=== PATIENT | male | born 1970 | race Caucasian/White ===

== ENCOUNTER 2016-07-18 15:36 | Emergency (ER) ==
[2016-07-18 15:41] VITALS: BP 156/104; TEMP 99.8; BMI 43.0
[2016-07-18] MEDS ORDERED: NORCO 10-325 PO STA (15:51)
--- NOTE | 2016-07-18 16:20 | DI ---
EXAM: Three views of the right ankle. History: Right ankle pain. Comparison: Right ankle radiograph 01/07/2013 Findings: No acute fracture or dislocation. Moderate narrowing of the tibiotalar joint. Calcaneal enthesiopathy. Soft tissue swelling at the ankle. Hypertrophic osseous changes of the medial late ral malleolus compatible with old ligamentous injury. Impression: 1. No acute fracture or dislocation. 2. Moderate arthritis of the tibiotalar joint. 3. Hypertrophic osseous changes of the medial and lateral malleolus compatible with old trauma. 4. Subcutaneous edema.
--- NOTE | 2016-07-18 16:21 | DI ---
EXAM: Three views of the right foot. History: Right foot pain. Comparison: Right ankle radiograph 07/18/2016 Findings: No acute fracture or dislocation. Subcutaneous edema at the ankle. Mild narrowing of th e first MTP joint. Hypertrophic osseous changes of the medial lateral malleolus compatible with old trauma. Impression: No acute osseous abnormality. Subcutaneous edema.
--- NOTE | 2016-07-18 16:45 | ED.PDOC ---
General ED Provider: Dr. JOSE MARIA MCKEON Chief Complaint: Ankle Pain/Injury Stated Complaint: ankle, foot right side Time Seen by Physician: 15:45 Mode of Arrival: Walk-In Information Source: Patient Exam Limitations: No limitations Primary Care Provider: YUO CHAMBERLAIN Nursing and Triage Documentation Reviewed and Agree: Yes Musculoskeletal Complaint Exam - Ankle/Foot Complaint/Exam Location of Injury: Reports: Right, Ankle, Foot Mechanism of Injury: Reports: Trauma ( twisted it) Onset/Duration: 2 hours ago Symptoms Are: Reports: Still present Onset of Pain: Reports: Hours Initial Severity: Moderate Current Severity: Mild Location: Reports: Discrete Character: Reports: Dull Alleviating: Reports: Rest, Position Aggravating: Reports: Movement Able to Bear Weight: Yes Associated Signs and Symptoms: Denies: Swelling, Redness, Bruising, Fever, Weakness, Numbness, Tingling Gout Risk Factors: Reports: >40 years old Related Surgical History: Reports: None Differential Diagnosis: Closed Fracture Review of Systems - Review Of Systems Constitutional: Reports: No symptoms Eyes: Reports: No symptoms Ears, Nose, Mouth, Throat: Reports: No symptoms Respiratory: Reports: No symptoms Cardiac: Reports: No symptoms GI: Reports: No symptoms : Reports: No symptoms Musculoskeletal: Reports: Joint pain (ankle, foot) Skin: Reports: No symptoms Neurological: Reports: No symptoms Endocrine: Reports: No symptoms Hematologic/Lymphatic: Reports: No symptoms All Other Systems: Reviewed and Negative Past Medical History - Past Medical History Previously Healthy: Yes Endocrine: Reports: Dyslipidemia Cardiovascular: Reports: Hypertension Respiratory: Reports: COPD Hematological: Reports: None Gastrointestinal: Reports: GERD Genitourinary: Reports: None Neuro/Psych: Reports: Anxiety, Depression Musculoskeletal: Reports: Arthritis, Back Pain, Joint Pain Cancer: Reports: None Other Pertinent Past Medical History: cyst removed from lower back(? PILONINALCYST, septoplasty - Surgical History General Surgical History: Reports: None (left FA surgery for wound-noted bandage on discussion), Appendectomy ((old record)), Tonsillectomy ((old record) ), Adenoidectomy ((old record)), Orthopedic (right shoulder surgery(old record), left shoulder rotator cuff), Other (deviated septum(old record) renal cyst removed(old record); rotator cuff surgery 02/06) - Family History Family History: Reports: None - Social History Smoking Status: Current every day smoker, Heavy tobacco smoker Hx Substance Use: No Alcohol Screening: Occasionally Physical Exam - Physical Exam Appearance: Well-appearing, No pain distress, Well-nourished Eyes: FIOR, EOMI, Conjunctiva clear ENT: Ears normal, Nose normal, Oropharynx normal Respiratory: Airway patent, Breath sounds clear, Breath sounds equal, Respirations nonlabored Cardiovascular: RRR, Pulses normal, No rub, No murmur GI/: Soft, Nontender, No masses, Bowel sounds normal, No Organomegaly Musculoskeletal: Limited ROM (right ankle) Skin: Warm, Dry, Normal color Neurological: Sensation intact, Motor intact, Reflexes intact, Cranial nerves intact, Alert, Oriented Psychiatric: Affect appropriate, Mood appropriate Interpretation - Radiology Interpretation Radiology Interpretation By: Radiologist Radiology Results: No acute changes Critical Care Note - Critical Care Note Total Time (mins): 0 Course - Course Orders, Labs, Meds: Orders Category Date Time Status Hydrocodone Bit/Acetaminophen [[place] 10-325] MEDS 07/18/16 15:51 Discontinued 1 tab PO ONCE STA ANKLE, RIGHT MIN 3 VIEWS Stat RADS 07/18/16 15:50 Completed FOOT, RIGHT 3 VIEWS Stat RADS 07/18/16 15:50 Completed Medications Discontinued Medications Generic Name Dose Route Start Last Admin Trade Name Freq PRN Reason Stop Dose Admin Acetaminophen/Hydrocodone Bitart 1 tab 07/18/16 15:51 07/18/16 16:09 [place] 10-325 PO 07/18/16 15:52 1 tab ONCE STA Administration Vital Signs: Temp Pulse Resp BP Pulse Ox 07/18/16 15:36 99.8 F H 103 H 20 156/104 H 95 Departure - Departure Time of Disposition: 16:44 Disposition: HOME SELF-CARE Discharge Problem: Ankle pain, Foot pain, right Instructions: Arthralgia (ED) Condition: Good Pt referred to PMD for follow-up: No Allergies/Adverse Reactions: Allergies levofloxacin [From Levaquin] Adverse Reaction (Verified 07/18/16 15:42) Severe rash Penicillins Adverse Reaction (Verified 07/18/16 15:42) Anaphylaxis tramadol [From Ultram] Adverse Reaction (Verified 07/18/16 15:42) Hives Home Medications: Ambulatory Orders Ranitidine HCl [Zantac] 150 mg PO BIDAC 11/06/15 Atorvastatin Calcium 10 mg PO BEDTIME 11/26/15 Lisinopril 10 mg PO DAILY 11/26/15 Gabapentin [Neurontin] 300 mg PO TID 12/20/15 Meloxicam [Mobic] 15 mg PO DAILY 12/20/15 Nitroglycerin [Nitrostat] 1 tab SL DIRECTED PRN 02/17/16 Hydrocodone/Acetaminophen [[place] 5-325 Tablet] 1 each PO Q6HR PRN #7 tablet
== END 2016-07-18 16:50 | disposition home or self-care (01) ==
LOC: ED 15:36
DX: M25.571 Pain in right ankle and joints of right foot (principal); X50.1XXA Overexertion from prolonged static or awkward postures, initial encounter; F17.210 Nicotine dependence, cigarettes, uncomplicated
CPT/HCPCS: 99283

== ENCOUNTER 2016-08-15 13:37 | Emergency (ER) ==
[2016-08-15 13:41] VITALS: BP 172/97; TEMP 97.6; BMI 42.3
--- NOTE | 2016-08-15 14:10 | ED.PDOC ---
General ED Provider: Dr. JOSE MARIA MCKEON Chief Complaint: Earache Stated Complaint: ear pain left Time Seen by Physician: 13:38 Mode of Arrival: Walk-In Information Source: Patient Exam Limitations: No limitations Primary Care Provider: YOU CHAMBERLAIN Nursing and Triage Documentation Reviewed and Agree: Yes EENT Complaint Exam - Ear Complaint/Exam Onset/Duration: left ear pain Symptoms Are: Still present Timing: Constant Initial Severity: Moderate Current Severity: Moderate Character: Reports: Dull pain Aggravating: Reports: None Alleviating: Reports: None Associated Signs and Symptoms: Denies: Ear trauma, Ear swelling, Discharge, Fever, Hearing loss, Bleeding, Sore throat, Headache, URI symptoms, Foreign body sensation, Rash, Pain to external ear, Pain to external face Ear Surgical History: None Vesicles to External Pinna: No Vesicles to Tragus: No TMJ Tenderness: None Mastoid Tenderness: None Tragal Tenderness: None External Canal: Normal Tympanic Membrane: Erythema Differential Diagnoses: Otitis Media Review of Systems - Review Of Systems Constitutional: Reports: No symptoms Eyes: Reports: No symptoms Ears, Nose, Mouth, Throat: Reports: Ear pain Respiratory: Reports: No symptoms Cardiac: Reports: No symptoms GI: Reports: No symptoms : Reports: No symptoms Musculoskeletal: Reports: No symptoms Skin: Reports: No symptoms Neurological: Reports: No symptoms Endocrine: Reports: No symptoms Hematologic/Lymphatic: Reports: No symptoms All Other Systems: Reviewed and Negative Past Medical History - Past Medical History Previously Healthy: Yes Endocrine: Reports: Dyslipidemia Cardiovascular: Reports: Hypertension Respiratory: Reports: COPD Hematological: Reports: None Gastrointestinal: Reports: GERD Genitourinary: Reports: None Neuro/Psych: Reports: Anxiety, Depression Musculoskeletal: Reports: Arthritis, Back Pain, Joint Pain Cancer: Reports: None Other Pertinent Past Medical History: cyst removed from lower back(? PILONINALCYST, septoplasty - Surgical History General Surgical History: Reports: None (left FA surgery for wound-noted bandage on discussion), Appendectomy ((old record)), Tonsillectomy ((old record) ), Adenoidectomy ((old record)), Orthopedic (right shoulder surgery(old record), left shoulder rotator cuff), Other (deviated septum(old record) renal cyst removed(old record); rotator cuff surgery 02/06) - Family History Family History: Reports: None - Social History Smoking Status: Current every day smoker, Heavy tobacco smoker Hx Substance Use: No Alcohol Screening: Occasionally Physical Exam - Physical Exam Appearance: Well-appearing, No pain distress, Well-nourished Eyes: FIOR, EOMI, Conjunctiva clear ENT: Erythema (l tm) Respiratory: Airway patent, Breath sounds clear, Breath sounds equal, Respirations nonlabored Cardiovascular: RRR, Pulses normal, No rub, No murmur GI/: Soft, Nontender, No masses, Bowel sounds normal, No Organomegaly Musculoskeletal: Normal strength, ROM intact, No edema, No calf tenderness Skin: Warm, Dry, Normal color Neurological: Sensation intact, Motor intact, Reflexes intact, Cranial nerves intact, Alert, Oriented Psychiatric: Affect appropriate, Mood appropriate Critical Care Note - Critical Care Note Total Time (mins): 0 Course - Course Vital Signs: Temp Pulse Resp BP Pulse Ox 08/15/16 13:38 97.6 F 95 H 16 172/97 H 95 Departure - Departure Time of Disposition: 14:09 Disposition: HOME SELF-CARE Discharge Problem: Otitis media Qualifiers: Otitis media type: unspecified Chronicity: acute Instructions: Otitis Media (ED) Condition: Good Pt referred to PMD for follow-up: No Additional Instructions: Please call your Family Physician as soon as possible to schedule a follow-up appointment. Prescriptions: Hydrocodone/Acetaminophen [[place] 10-325 Tablet] 1 each PO Q8HR #3 tablet Cefdinir [Omnicef] 300 mg PO Q12HR #10 capsule Allergies/Adverse Reactions: Allergies levofloxacin [From Levaquin] Adverse Reaction (Verified 08/15/16 13:41) Severe rash Penicillins Adverse Reaction (Verified 08/15/16 13:41) Anaphylaxis tramadol [From Ultram] Adverse Reaction (Verified 08/15/16 13:41) Hives Home Medications: Ambulatory Orders Ranitidine HCl [Zantac] 150 mg PO BIDAC 11/06/15 Atorvastatin Calcium 10 mg PO BEDTIME 11/26/15 Lisinopril 10 mg PO DAILY 11/26/15 Gabapentin [Neurontin] 300 mg PO TID 12/20/15 Meloxicam [Mobic] 15 mg PO DAILY 12/20/15 Nitroglycerin [Nitrostat] 1 tab SL DIRECTED PRN 02/17/16 Cefdinir [Omnicef] 300 mg PO Q12HR #10 capsule 08/15/16 Hydrocodone/Acetaminophen [[place] 10-325 Tablet] 1 each PO Q8HR #3 tablet
== END 2016-08-15 14:18 | disposition home or self-care (01) ==
LOC: ED 13:37
DX: H66.92 Otitis media, unspecified, left ear (principal); F17.210 Nicotine dependence, cigarettes, uncomplicated; Z79.899 Other long term (current) drug therapy
CPT/HCPCS: 99283

== ENCOUNTER 2016-08-17 15:16 | Emergency (ER) ==
[2016-08-17 15:16] VITALS: BMI 42.3
[2016-08-17 15:21] VITALS: BP 174/71; TEMP 99.1
--- NOTE | 2016-08-17 15:50 | ED.PDOC ---
General ED Provider: Dr. MAXIMUS ROBLEDO Chief Complaint: Earache Stated Complaint: Earache - worse and right starting also. Out of pain meds. Using ear drops Time Seen by Physician: 15:35 Mode of Arrival: Walk-In Information Source: Patient Exam Limitations: No limitations Primary Care Provider: YOU CHAMBERLAIN Nursing and Triage Documentation Reviewed and Agree: Yes Review of Systems - Review Of Systems Constitutional: Reports: No symptoms Ears, Nose, Mouth, Throat: Reports: Ear pain Respiratory: Reports: No symptoms. Denies: Cough, Orthopnea, Short of air All Other Systems: Reviewed and Negative Past Medical History - Past Medical History Previously Healthy: Yes Endocrine: Reports: Dyslipidemia Cardiovascular: Reports: Hypertension Respiratory: Reports: COPD Hematological: Reports: None Gastrointestinal: Reports: GERD Genitourinary: Reports: None Neuro/Psych: Reports: Anxiety, Depression Musculoskeletal: Reports: Arthritis, Back Pain, Joint Pain Cancer: Reports: None Other Pertinent Past Medical History: cyst removed from lower back(? PILONINALCYST, septoplasty - Surgical History General Surgical History: Reports: None (left FA surgery for wound-noted bandage on discussion), Appendectomy ((old record)), Tonsillectomy ((old record) ), Adenoidectomy ((old record)), Orthopedic (right shoulder surgery(old record), left shoulder rotator cuff), Other (deviated septum(old record) renal cyst removed(old record); rotator cuff surgery 02/06) - Family History Family History: Reports: None - Social History Smoking Status: Current every day smoker, Heavy tobacco smoker Hx Substance Use: No Alcohol Screening: Occasionally Physical Exam - Physical Exam Appearance: Well-appearing ENT: Oropharynx normal, Erythema (L TM and R ext canal) Neck: Supple Skin: Warm, Dry, Normal color Critical Care Note - Critical Care Note Total Time (mins): 8 Course - Course Vital Signs: Temp Pulse Resp BP Pulse Ox 08/17/16 15:16 99.1 F 106 H 20 174/71 H 97 Departure - Departure Time of Disposition: 15:52 Disposition: HOME SELF-CARE Discharge Problem: Otitis externa Otitis media Qualifiers: Otitis media type: unspecified nonsuppurative Laterality: right Qualifier Code : (H65.91) Unspecified nonsuppurative otitis media, right ear Instructions: Otitis Media (ED) Condition: Good Pt referred to PMD for follow-up: Yes Additional Instructions: Use antibiotics as prescribed; follow up with primary care as needed Prescriptions: Hydrocodone Bit/Acetaminophen [[place] 7.5-325] 1 each PO Q6HR #10 tablet Sulfamethoxazole/Trimethoprim [Bactrim Ds 800/160 mg] 1 tab PO Q12HR #14 tablet Allergies/Adverse Reactions: Allergies levofloxacin [From Levaquin] Adverse Reaction (Verified 08/17/16 15:23) Severe rash Penicillins Adverse Reaction (Verified 08/17/16 15:23) Anaphylaxis tramadol [From Ultram] Adverse Reaction (Verified 08/17/16 15:23) Hives Home Medications: Ambulatory Orders Ranitidine HCl [Zantac] 150 mg PO BIDAC 11/06/15 Atorvastatin Calcium 10 mg PO BEDTIME 11/26/15 Lisinopril 10 mg PO DAILY 11/26/15 Gabapentin [Neurontin] 300 mg PO TID 12/20/15 Meloxicam [Mobic] 15 mg PO DAILY 12/20/15 Nitroglycerin [Nitrostat] 1 tab SL DIRECTED PRN 02/17/16 Cefdinir [Omnicef] 300 mg PO Q12HR #10 capsule 08/15/16 Hydrocodone/Acetaminophen [[place] 10-325 Tablet] 1 each PO Q8HR #3 tablet Hydrocodone Bit/Acetaminophen [[place] 7.5-325] 1 each PO Q6HR #10 tablet Sulfamethoxazole/Trimethoprim [Bactrim Ds 800/160 mg] 1 tab PO Q12HR #14 tablet 08/17/16
== END 2016-08-17 16:02 | disposition home or self-care (01) ==
LOC: ED 15:16
DX: H65.91 Unspecified nonsuppurative otitis media, right ear (principal); H92.03 Otalgia, bilateral; L53.8 Other specified erythematous conditions; F17.200 Nicotine dependence, unspecified, uncomplicated
CPT/HCPCS: 99282

== ENCOUNTER 2016-08-31 13:19 | Emergency (ER) ==
[2016-08-31 13:26] VITALS: BP 179/88; TEMP 98.8; BMI 45.4
--- NOTE | 2016-08-31 14:10 | DI ---
EXAM: Three views of the right shoulder. History: Right shoulder pain and trauma. Findings: No acute fracture or dislocation. Mild to moderate narrowing of the AC joint and glenohu meral joint. High-riding humeral head and cystic change within the humeral head. Impression: 1. No acute fracture. 2. Mild to moderate arthritis. 3. Rotator cuff disease or chronic tear.
[2016-08-31] MEDS ORDERED: DECADRON 4 MG/ML SDV IM STA (14:16)
[2016-08-31] MEDS ORDERED: TORADOL IM STA (14:16)
--- NOTE | 2016-08-31 14:18 | ED.PDOC ---
General ED Provider: Dr. ERNIE NOVOA Chief Complaint: Extremity Pain/Injury Stated Complaint: Hurting in the rt shoulder, was trying to play with dog, got hurt. has h/o rotator cuff problem in past. Time Seen by Physician: 14:16 Mode of Arrival: Walk-In Information Source: Patient Primary Care Provider: YOU CHAMBERLAIN Nursing and Triage Documentation Reviewed and Agree: Yes Musculoskeletal Complaint Exam - Shoulder Pain Complaint/Exam Mechanism of Injury: Reports: Trauma Symptoms Are: Still present Timing: Constant Initial Severity: Moderate Current Severity: Moderate Location: Reports: Discrete Character: Reports: Aching, Throbbing Alleviating: Reports: None Aggravating: Reports: Movement, Lifting, Flexion, Extension Associated Signs and Symptoms: Denies: Swelling, Redness, Bruising, Fever, Weakness, Numbness, Tingling Non-Orthopedic Risk Factors: Reports: None DVT Risk Factors: Reports: None Septic Arthritis Risk Factors: Reports: None Related Surgical History: Reports: None Limited Range of Motion: Present: Abduction, Adduction, Flexion Differential Diagnoses: Rotator Cuff Injury, Sprain Review of Systems - Review Of Systems Constitutional: Reports: No symptoms Eyes: Reports: No symptoms Ears, Nose, Mouth, Throat: Reports: No symptoms Respiratory: Reports: No symptoms Cardiac: Reports: No symptoms GI: Reports: No symptoms : Reports: No symptoms Musculoskeletal: Reports: Joint pain, Muscle pain Skin: Reports: No symptoms Neurological: Reports: No symptoms Endocrine: Reports: No symptoms Hematologic/Lymphatic: Reports: No symptoms All Other Systems: Reviewed and Negative Past Medical History - Past Medical History Previously Healthy: No Endocrine: Reports: Dyslipidemia Cardiovascular: Reports: Hypertension Respiratory: Reports: COPD Hematological: Reports: None Gastrointestinal: Reports: GERD Genitourinary: Reports: None Neuro/Psych: Reports: Anxiety, Depression Musculoskeletal: Reports: Arthritis, Back Pain, Joint Pain Cancer: Reports: None Other Pertinent Past Medical History: cyst removed from lower back(? PILONINALCYST, septoplasty - Surgical History General Surgical History: Reports: None (left FA surgery for wound-noted bandage on discussion), Appendectomy ((old record)), Tonsillectomy ((old record) ), Adenoidectomy ((old record)), Orthopedic (right shoulder surgery(old record), left shoulder rotator cuff), Other (deviated septum(old record) renal cyst removed(old record); rotator cuff surgery 11/15) - Family History Family History: Reports: None - Social History Smoking Status: Current every day smoker, Heavy tobacco smoker Smoking Cessation Counseling Time: > 3 min - 10 min Hx Substance Use: No Alcohol Screening: Occasionally - Immunizations Tetanus Shot up to Date: Yes Physical Exam - Physical Exam Appearance: Well-appearing, Obese Pain Distress: Moderate Eyes: FIOR, EOMI, Conjunctiva clear ENT: Ears normal, Nose normal, Oropharynx normal Respiratory: Airway patent, Breath sounds clear, Breath sounds equal, Respirations nonlabored Cardiovascular: RRR, Pulses normal, No rub, No murmur GI/: Soft, Nontender, No masses, Bowel sounds normal, No Organomegaly Musculoskeletal: No edema, No calf tenderness, Limited ROM (rt shoulder.), Limited strength Skin: Warm, Dry, Normal color Neurological: Sensation intact, Motor intact, Reflexes intact, Cranial nerves intact, Alert, Oriented Psychiatric: Affect appropriate, Mood appropriate Interpretation - Radiology Interpretation Radiology Interpretation By: Radiologist Radiology Results: Positive Critical Care Note - Critical Care Note Total Time (mins): 0 Course - Course Orders, Labs, Meds: Orders Category Date Time Status HAND, LEFT 3 VIEWS Stat RADS 08/31/16 13:42 Taken SHOULDER, RIGHT MIN 2V Stat RADS 08/31/16 13:42 Completed Vital Signs: Temp Pulse Resp BP Pulse Ox 08/31/16 13:21 98.8 F 100 H 20 179/88 H 95 Departure - Departure Time of Disposition: 14:22 Disposition: HOME SELF-CARE Discharge Problem: Rotator cuff (capsule) sprain Qualifiers: Encounter type: initial encounter Laterality: right Qualifier Code: (S43.421A) Sprain of right rotator cuff capsule, initial encounter Instructions: Rotator Cuff Injury (ED) Condition: Stable Pt referred to PMD for follow-up: Yes Additional Instructions: rest hot pack Prescriptions: Ketorolac Tromethamine [Toradol] 10 mg PO Q8H #10 tablet Allergies/Adverse Reactions: Allergies levofloxacin [From Levaquin] Adverse Reaction (Verified 08/17/16 15:23) Severe rash Penicillins Adverse Reaction (Verified 08/17/16 15:23) Anaphylaxis tramadol [From Ultram] Adverse Reaction (Verified 08/17/16 15:23) Hives Home Medications: Ambulatory Orders Ranitidine HCl [Zantac] 150 mg PO BIDAC 11/06/15 Atorvastatin Calcium 10 mg PO BEDTIME 11/26/15 Lisinopril 10 mg PO DAILY 11/26/15 Gabapentin [Neurontin] 400 mg PO TID 12/20/15 Meloxicam [Mobic] 15 mg PO DAILY 12/20/15 Nitroglycerin [Nitrostat] 1 tab SL DIRECTED PRN 02/17/16 Ketorolac Tromethamine [Toradol] 10 mg PO Q8H #10 tablet 08/31/16 Disposition Discussed With: Patient
--- NOTE | 2016-08-31 14:22 | DI ---
EXAM: LEFT HAND THREE VIEWS HISTORY: Pain with injury FINDINGS: Bone and joint structures appear normal. There is no fracture, joint dislocation, bone density abnormality or soft tissue finding. IMPRESSION: No fracture or dislocation.
== END 2016-08-31 14:36 | disposition home or self-care (01) ==
LOC: ED 13:19
DX: S43.421A Sprain of right rotator cuff capsule, initial encounter (principal); M79.1 Myalgia; M25.50 Pain in unspecified joint; F17.210 Nicotine dependence, cigarettes, uncomplicated; X50.1XXA Overexertion from prolonged static or awkward postures, initial encounter
CPT/HCPCS: 96372; 99283

== ENCOUNTER 2016-09-04 15:54 | Outpatient (CLI) ==
[2012-09-07 16:07] VITALS: TEMP 97.6
== END 2016-09-04 15:55 | disposition home or self-care (01) ==
LOC: CAR 15:54
PROVIDERS: ATTEND Nurse Practitioner Family
DX: G47.10 Hypersomnia, unspecified (principal); R06.83 Snoring
CPT/HCPCS: 95810

== ENCOUNTER 2016-09-14 12:51 | Emergency (ER) ==
[2016-09-14 13:05] VITALS: BP 151/90; TEMP 98.1; BMI 47.4
--- NOTE | 2016-09-14 13:28 | ED.PDOC ---
General ED Provider: Dr. JOSE MARIA MCKEON Chief Complaint: Fall Stated Complaint: fall neck pain Time Seen by Physician: 13:00 Mode of Arrival: Walk-In Information Source: Patient Exam Limitations: No limitations Primary Care Provider: YOU CHAMBERLAIN Nursing and Triage Documentation Reviewed and Agree: Yes Trauma/Injury Complaint Exam - Trauma Complaint/Exam Location of Pain or Injury: Reports: Neck Mechanism of Injury: Reports: Fall Onset/Duration: 1 hr ago Symptoms Are: Still present Timing of Treatment: Immediate Initial Severity: Moderate Current Severity: Moderate Character: Reports: Dull Aggravating: Reports: None Alleviating: Reports: None Associated Signs and Symptoms: Denies: LOC, Confusion, Memory loss, Lethargy, Vomiting, Bleeding, Bruising, Swelling, Extremity disuse, Painful respiration, Hoarseness, Dysphagia, Hemoptysis, Significant blood loss Review of Systems - Review Of Systems Constitutional: Reports: No symptoms Eyes: Reports: No symptoms Ears, Nose, Mouth, Throat: Reports: No symptoms Respiratory: Reports: No symptoms Cardiac: Reports: No symptoms GI: Reports: No symptoms : Reports: No symptoms Musculoskeletal: Reports: Neck pain Skin: Reports: No symptoms Neurological: Reports: No symptoms Endocrine: Reports: No symptoms Hematologic/Lymphatic: Reports: No symptoms All Other Systems: Reviewed and Negative Past Medical History - Past Medical History Previously Healthy: No Endocrine: Reports: Dyslipidemia Cardiovascular: Reports: Hypertension Respiratory: Reports: COPD Hematological: Reports: None Gastrointestinal: Reports: GERD Genitourinary: Reports: None Neuro/Psych: Reports: Anxiety, Depression Musculoskeletal: Reports: Arthritis, Back Pain, Joint Pain Cancer: Reports: None Other Pertinent Past Medical History: cyst removed from lower back(? PILONINALCYST, septoplasty - Surgical History General Surgical History: Reports: None (left FA surgery for wound-noted bandage on discussion), Appendectomy ((old record)), Tonsillectomy ((old record) ), Adenoidectomy ((old record)), Orthopedic (right shoulder surgery(old record), left shoulder rotator cuff), Other (deviated septum(old record) renal cyst removed(old record); rotator cuff surgery 02/06) - Family History Family History: Reports: None - Social History Smoking Status: Current every day smoker, Heavy tobacco smoker Hx Substance Use: No Alcohol Screening: Occasionally Physical Exam - Physical Exam Appearance: Well-appearing, No pain distress, Well-nourished Eyes: FIOR, EOMI, Conjunctiva clear ENT: Ears normal, Nose normal, Oropharynx normal Respiratory: Airway patent, Breath sounds clear, Breath sounds equal, Respirations nonlabored Cardiovascular: RRR, Pulses normal, No rub, No murmur GI/: Soft, Nontender, No masses, Bowel sounds normal, No Organomegaly Musculoskeletal: Normal strength, ROM intact, No edema, No calf tenderness Skin: Warm, Dry, Normal color Neurological: Sensation intact, Motor intact, Reflexes intact, Cranial nerves intact, Alert, Oriented Psychiatric: Affect appropriate, Mood appropriate Critical Care Note - Critical Care Note Total Time (mins): 0 Course - Course Orders, Labs, Meds: Orders Category Date Time Status CT CERVICAL SPINE W/O CONTRAST Stat RADS 09/14/16 13:06 Ordered Vital Signs: Temp Pulse Resp BP Pulse Ox 09/14/16 12:54 98.1 F 88 20 151/90 H 93 L Departure - Departure Time of Disposition: 02:15 Disposition: HOME SELF-CARE Discharge Problem: Neck sprain Qualifiers: Encounter type: initial encounter Qualifier Code: (S13.9XXA) Sprain of joints and ligaments of unspecified parts of neck, initial encounter Instructions: Cervical Strain (ED) Condition: Good Pt referred to PMD for follow-up: No Allergies/Adverse Reactions: Allergies levofloxacin [From Levaquin] Adverse Reaction (Verified 09/14/16 13:00) Severe rash Penicillins Adverse Reaction (Verified 09/14/16 13:00) Anaphylaxis tramadol [From Ultram] Adverse Reaction (Verified 09/14/16 13:00) Hives Home Medications: Ambulatory Orders Ranitidine HCl [Zantac] 150 mg PO BIDAC 11/06/15 Atorvastatin Calcium 10 mg PO BEDTIME 11/26/15 Lisinopril 10 mg PO DAILY 11/26/15 Gabapentin [Neurontin] 400 mg PO TID 12/20/15 Meloxicam [Mobic] 15 mg PO DAILY 12/20/15 Nitroglycerin [Nitrostat] 1 tab SL DIRECTED PRN 02/17/16
--- NOTE | 2016-09-14 14:05 | CT ---
EXAM: CT of the cervical spine without contrast History: Cervical spine pain. Technique: Multiplanar CT images through the cervical spine were obtained without the administratio n of IV contrast Findings: The visualized paranasal sinuses and mastoid air cells are clear in general. Reversal of the normal cervical lordosis. No acute fracture or subluxation. Prominent adenoids and prominent uvula. Trace left mastoid effusion. Disc space heights are relatively preserved. A few small anterior osteophytes at C4-5 and C5-6. [place] spinal canal is not compromised. No significant bony neural foraminal narrowing. Incidental nonu nion of the posterior arch of C1 new Impression: 1. No acute osseous abnormality of the cervical spine. 2. No significant degenerative changes are identified by CT. If symptoms persist, recommend furthe r evaluation with MRI. 3. Prominent adenoids and prominent uvula.
== END 2016-09-14 14:15 | disposition home or self-care (01) ==
LOC: ED 12:51
DX: S13.9XXA Sprain of joints and ligaments of unspecified parts of neck, initial encounter (principal); W19.XXXA Unspecified fall, initial encounter; F17.210 Nicotine dependence, cigarettes, uncomplicated
CPT/HCPCS: 99283

== ENCOUNTER 2016-09-17 08:07 | Outpatient (CLI) ==
[2012-09-07 16:07] VITALS: TEMP 97.6
[2016-09-17 10:01] LABS: ALBUMIN 3.7 g/dL (3.4-5.0); ALBUMIN/GLOBULIN RATIO 0.88; ANION GAP 15.5; BILIRUBIN,TOTAL 0.5 mg/dL (0.00-1.20); BUN/CREATININE RATIO 20.48; CALCIUM 9.4 mg/dL (8.2-10.2); CREATININE 0.83 mg/dL (0.60-1.10); POTASSIUM 4.5 mmol/L (3.5-5.1); TOTAL PROTEIN 7.9 g/dL (6.4-8.2)
== END 2016-09-17 08:08 ==
LOC: LAB 08:07
PROVIDERS: ATTEND Internal Medicine
DX: E78.5 Hyperlipidemia, unspecified (principal)
CPT/HCPCS: 36415; 80053

== ENCOUNTER 2017-08-25 03:35 | Inpatient (IN) ==
[2017-08-25] MEDS ORDERED: TESSALON PERLES PO STA (03:53)
[2017-08-25] MEDS ORDERED: DUONEB NEB STA (03:53)
[2017-08-25] MEDS ORDERED: SOLU-MEDROL 125 MG IVP STA (03:56)
--- NOTE | 2017-08-25 03:57 | ED.PDOC ---
General ED Provider: Dr. WALDO REYES Chief Complaint: Cough Stated Complaint: Patient complains of productive cough for few days, was seen at [facility] diagnosed with bronchitis. Given steroids and zithromax. States his was ill with pneumonia recently. Smokes 1/2ppd and has been for 30 years Time Seen by Physician: 03:55 Mode of Arrival: Walk-In Information Source: Patient Exam Limitations: No limitations Primary Care Provider: YOU CHAMBERLAIN Nursing and Triage Documentation Reviewed and Agree: Yes Reviewed sepsis parameters & appropriate labs ordered?: No System Inflammatory Response Syndrome: Pulse >90 BPM, Resp >20/Minute Sepsis Protocol: For patient's 13 years and over: Temp is 96.8 and below OR 101 and greater Pulse >90 BPM Resp >20/minute Acutely Altered Mental Status Are patient's symptoms suggestive of a new infection, such as: -Pneumonia -Skin, Soft Tissue -Endocarditis -UTI -Bone, Joint Infection -Implantable Device -Acute Abdominal Infection -Wound Infection -Meningitis -Blood Stream Catheter Infection -Unknown Respiratory Complaint Exam - Shortness of Air Complaint/Exam Onset/Duration: 4 days Symptoms Are: Still present Timing: Constant Initial Severity: Moderate Current Severity: Severe Character: Reports: Dyspnea at rest Aggravating: Reports: Allergens, URI, Weather Alleviating: Reports: None Associated Signs and Symptoms: Reports: Cough, Wheezing, Dizziness (after coughing ) Related History: Reports: Similar episode Pulmonary Embolism Risk Factors: Reports: None Cardiac Risk Factors: Reports: None Pseudomonas Risk Factors: Reports: Chronic Lung Disease Tuberculosis Risk Factors: Reports: Corticosteriod use Home Oxygen Use: No Recent Stress Test: No Recent Echo/LV Function: No Respiratory Distress: None Stridor Present: No Tracheal Deviation: No Accessory Muscle Use: No Retractions: Not Present Diminished Breath Sounds: Yes Prolonged Expiratory Phase: No Unable to Speak Full Sentences: No Fatigue: No Leg Swelling: No Nora's Sign Present: No Grunting Respirations: No Differential Diagnoses: COPD Exacerbation, Pneumonia, Bronchitis Quality Indicators For Pneumonia/CAP: Blood Cultures-SCU admit, Antibiotics in 6hr-admit Review of Systems - Review Of Systems Constitutional: Reports: Diaphoresis Eyes: Reports: No symptoms Respiratory: Reports: Cough, Short of air, Wheezing : Reports: No symptoms Musculoskeletal: Reports: No symptoms Neurological: Reports: Anxiety All Other Systems: Reviewed and Negative Past Medical History - Past Medical History Previously Healthy: No Endocrine: Reports: Dyslipidemia Cardiovascular: Reports: Hypertension Respiratory: Reports: COPD Hematological: Reports: None Gastrointestinal: Reports: GERD Genitourinary: Reports: None Neuro/Psych: Reports: Anxiety, Depression Musculoskeletal: Reports: Arthritis, Back Pain, Joint Pain Cancer: Reports: None Other Pertinent Past Medical History: cyst removed from lower back(? PILONINALCYST, septoplasty - Surgical History General Surgical History: Reports: None (left FA surgery for wound-noted bandage on discussion), Appendectomy ((old record)), Tonsillectomy ((old record) ), Adenoidectomy ((old record)), Orthopedic (right shoulder surgery(old record), left shoulder rotator cuff), Other (deviated septum(old record) renal cyst removed(old record); rotator cuff surgery 02/06) - Family History Family History: Reports: None - Social History Smoking Status: Current every day smoker, Heavy tobacco smoker Hx Substance Use: No Alcohol Screening: Occasionally - Immunizations Tetanus Shot up to Date: Yes Physical Exam - Physical Exam Appearance: Ill-appearing, Obese Ill-appearing: Moderate Neck: Supple Respiratory: Rhonchi, Wheezes GI/: Soft Musculoskeletal: Normal strength Skin: Warm Neurological: Alert Psychiatric: Anxious Interpretation - Radiology Interpretation Radiology Interpretation By: ED Physician Radiology Results: Negative Exam Interpreted: CXR - EKG Interpretation Time of EKG #1: 04:44 Rate: Normal Rhythm: Sinus Ectopy: None [place]: NL ST Segment: Normal Interpretation: non specific T wave abnormality. Physician Notification - Case Discussed Physician Notified: Dr Mtz Time of Notification: 04:50 (admit to SCU) Critical Care Note - Critical Care Note Total Time (mins): 35 Course - Course Hematology/Chemistry: 08/25/17 04:15 08/25/17 04:15 Orders, Labs, Meds: Lab Review 08/25/17 08/25/17 08/25/17 04:15 04:15 04:15 WBC 10.94 H RBC 4.53 L Hgb 12.5 L Hct 38.0 L MCV 83.9 MCH 27.6 MCHC 32.9 RDW Coeff of Mane 13.2 Plt Count 167 Immature Gran % (Auto) 0.4 Neut % (Auto) 70.4 Lymph % (Auto) 18.3 [place] % (Auto) 8.5 Eos % (Auto) 2.0 Baso % (Auto) 0.4 Immature Gran # (Auto) 0.0 Neut # (Auto) 7.7 H Lymph # (Auto) 2.0 [place] # (Auto) 0.9 Eos # (Auto) 0.2 Baso # (Auto) 0.0 Sodium 138 Potassium 3.9 Chloride 104 Carbon Dioxide 23 Anion Gap 14.9 BUN 19 H Creatinine 0.90 Estimated GFR (MDRD) 91.00 BUN/Creatinine Ratio 21.11 Glucose 127 H Lactic Acid 8.2 Calcium 9.0 Total Bilirubin 0.9 AST 20 ALT 23 Alkaline Phosphatase 68 Total Protein 7.6 Albumin 3.5 Globulin 4.1 Albumin/Globulin Ratio 0.85 Orders Category Date Time Status ABG DRAW REQUEST Routine CARDIO 08/25/17 04:04 Ordered EKG-(ED ONLY) Stat CARDIO 08/25/17 04:21 Ordered NEBULIZER TREATMENT Routine CARDIO 08/25/17 04:38 Ordered NEBULIZER TREATMENT Stat CARDIO 08/25/17 03:53 Ordered ACTIVITY .Early Mobilization for VTE Prevention CARE 08/25/17 04:31 Active INTAKE & OUTPUT Q8HR CARE 08/25/17 04:31 Active IV ACCESS ONCE CARE 08/25/17 03:55 Active VITAL SIGNS Q4HR CARE 08/25/17 04:31 Active REGULAR DIET DIETARY 08/25/17 Breakfast Ordered ED APPLY O2 .ONCE EMERGENCY 08/25/17 03:55 Active ED EPIC MANAGER APPLIED .ONCE EMERGENCY 08/25/17 03:55 Active ED IV/MEDIPORT/POWERPORT .ONCE EMERGENCY 08/25/17 03:56 Active ED VITAL SIGNS Q1HR EMERGENCY 08/25/17 03:55 Active ABG Stat LAB 08/25/17 04:04 Ordered BASIC METABOLIC PANEL DAILY@0600 LAB 08/25/17 06:00 Ordered BASIC METABOLIC PANEL DAILY@0600 LAB 08/26/17 06:00 Ordered BLOOD CULTURE (ED ONLY) Stat LAB 08/25/17 04:15 Received CBC W/ AUTO DIFF DAILY@0600 LAB 08/25/17 06:00 Ordered CBC W/ AUTO DIFF DAILY@0600 LAB 08/26/17 06:00 Ordered CBC W/ AUTO DIFF Stat LAB 08/25/17 04:15 Completed COMPREHENSIVE METABOLIC PANEL Stat LAB 08/25/17 04:15 Completed LACTIC ACID Stat LAB 08/25/17 04:15 Completed PROCALCITONIN Stat LAB 08/25/17 04:15 Received 0.9 % Sodium Chloride [Saline Flush] MEDS 08/25/17 03:56 Ordered 1 syr IVF PRN PRN Atorvastatin Calcium [Lipitor] MEDS 08/25/17 21:00 Ordered 10 mg PO BEDTIME Azithromycin [Zithromax] MEDS 08/25/17 09:00 Ordered 250 mg PO DAILY Aztreonam [Azactam] MEDS 08/25/17 04:40 Discontinued 1 gm .ROUTE .STK-MED ONE Aztreonam [Azactam] 1 gm MEDS 08/25/17 04:27 Active 0.9 % Sodium Chloride [Sodium Chloride] 50 ml IV ONCE Benzonatate [Tessalon Perles] MEDS 08/25/17 03:53 Discontinued 100 mg PO ONCE STA Benzonatate [Tessalon Perles] MEDS 08/25/17 04:47 Ordered 100 mg PO Q6H PRN Enoxaparin Sodium [Lovenox] MEDS 08/25/17 09:00 Ordered 40 mg SUBCUT DAILY Gabapentin [Neurontin] MEDS 08/25/17 09:00 Ordered 300 mg PO TID Ipratropium/Albuterol Neb [Duoneb] MEDS 08/25/17 03:53 Discontinued 1 vial NEB ONCE STA Ipratropium/Albuterol Neb [Duoneb] MEDS 08/25/17 04:31 Ordered 1 vial NEB RTQ2H PRN Ipratropium/Albuterol Neb [Duoneb] MEDS 08/25/17 06:00 Ordered 1 vial NEB RTQID Meloxicam [Mobic] MEDS 08/25/17 09:00 Ordered 15 mg PO DAILY Methylprednisolone Sod Succ/Pf [Solu-Medrol 125 mg] MEDS 08/25/17 03:56 Discontinued 125 mg IVP ONCE STA Methylprednisolone Sod Succ/Pf [Solu-Medrol 125 mg] MEDS 08/25/17 05:00 Ordered 125 mg IVP Q8HR Morphine Sulfate [Morphine 2 mg/ml Syringe] MEDS 08/25/17 04:31 Ordered 2 mg IVP Q4H PRN Nitroglycerin [Nitrostat] MEDS 08/25/17 04:38 Ordered 0.4 mg SL DIRECTED PRN Ondansetron HCl/Pf [Zofran 4 mg/2 ml] MEDS 08/25/17 04:31 Ordered 4 mg IVP Q6H PRN Ranitidine HCl [Zantac] MEDS 08/25/17 06:30 Ordered 150 mg PO BIDAC Ringers Lactated Solution [Lactated Ringers] 1,000 ml MEDS 08/25/17 04:00 Active IV BOLUS Sodium Chloride 0.9% [Sodium Chloride] 1,000 ml MEDS 08/25/17 05:00 Ordered IV 125 mls/hr RESUSCITATION STATUS Routine OTHERS 08/25/17 04:31 Ordered CHEST, 2 VIEWS PA & LAT Stat RADS 08/25/17 03:52 Taken Medications Generic Name Dose Route Start Last Admin Trade Name Freq PRN Reason Stop Dose Admin Albuterol/Ipratropium 1 vial 08/25/17 06:00 Duoneb NEB RTQID JONAH Albuterol/Ipratropium 1 vial 08/25/17 04:31 Duoneb NEB RTQ2H PRN Wheezing Atorvastatin Calcium 10 mg 08/25/17 21:00 Lipitor PO BEDTIME [facility] Azithromycin 250 mg 08/25/17 09:00 Zithromax PO DAILY [facility] Benzonatate 100 mg 08/25/17 04:47 Tessalon Perles PO Q6H PRN Cough Enoxaparin Sodium 40 mg 08/25/17 09:00 Lovenox SUBCUT DAILY [facility] Gabapentin 300 mg 08/25/17 09:00 Neurontin PO TID [facility] Lactated Ringer's 1,000 mls @ 1,000 mls/hr 08/25/17 04:00 08/25/17 04:32 Lactated Ringers IV 08/25/17 04:59 1,000 mls/hr BOLUS STA Administration Aztreonam 1 gm/ Sodium 50 mls @ 75 mls/hr 08/25/17 04:27 08/25/17 04:43 Chloride IV 08/25/17 05:06 75 mls/hr ONCE STA Administration Sodium Chloride 1,000 mls @ 125 mls/hr 08/25/17 05:00 Sodium Chloride IV .Q8H [facility] Methylprednisolone Sodium Succinate 125 mg 08/25/17 05:00 Solu-Medrol 125 Mg IVP Q8HR [facility] Morphine Sulfate 2 mg 08/25/17 04:31 Morphine 2 Mg/Ml Syringe IVP Q4H PRN Severe Pain Nitroglycerin 0.4 mg 08/25/17 04:38 Nitrostat SL DIRECTED PRN Angina Non-Formulary Medication 15 mg 08/25/17 09:00 Meloxicam [Mobic] PO DAILY JONAH Ondansetron HCl 4 mg 08/25/17 04:31 Zofran 4 Mg/2 Ml IVP Q6H PRN Nausea / Vomiting Ranitidine HCl 150 mg 08/25/17 06:30 Zantac PO BIDAC JOANH Sodium Chloride 1 syr 08/25/17 03:56 08/25/17 04:30 Saline Flush IVF 1 syr PRN PRN Administration To flush IV Discontinued Medications Generic Name Dose Route Start Last Admin Trade Name Freq PRN Reason Stop Dose Admin Albuterol/Ipratropium 1 vial 08/25/17 03:53 08/25/17 04:00 Duoneb NEB 08/25/17 03:54 1 vial ONCE STA Administration Benzonatate 100 mg 08/25/17 03:53 08/25/17 03:57 Tessalon Perles PO 08/25/17 03:54 100 mg ONCE STA Administration Methylprednisolone Sodium Succinate 125 mg 08/25/17 03:56 08/25/17 04:31 Solu-Medrol 125 Mg IVP 08/25/17 03:57 125 mg ONCE STA Administration Vital Signs: Temp Pulse Resp BP Pulse Ox 08/25/17 03:36 99.4 F 104 H 32 H 118/61 94 L Departure - Departure Time of Disposition: 05:26 Disposition: ADMITTED INPATIENT Discharge Problem: COPD exacerbation Condition: Fair Pt referred to PMD for follow-up: Yes IPMP verified?: No (Admitted ) Allergies/Adverse Reactions: Allergies hydrocodone Adverse Reaction (Verified 08/25/17 03:44) RASH/DIFFICULTY BREATHING levofloxacin [From Levaquin] Adverse Reaction (Verified 08/25/17 03:44) Severe rash Penicillins Adverse Reaction (Verified 08/25/17 03:44) Anaphylaxis tramadol [From Ultram] Adverse Reaction (Verified 08/25/17 03:44) Hives Home Medications: Ambulatory Orders Ranitidine HCl [Zantac] 150 mg PO BIDAC 11/06/15 Atorvastatin Calcium 10 mg PO BEDTIME 11/26/15 Gabapentin [Neurontin] 300 mg PO TID 12/20/15 Meloxicam [Mobic] 15 mg PO DAILY 12/20/15 Nitroglycerin [Nitrostat] 1 tab SL DIRECTED PRN 02/17/16 Azithromycin 250 mg PO DAILY 08/25/17 Prednisone 40 mg PO DAILY 08/25/17
[2017-08-25] MEDS ORDERED: LACTATED RINGERS 1,000 ML IV STA (04:00)
[2017-08-25] MEDS ORDERED: AZACTAM 1 GM in SODIUM CHLORIDE 50 ML IV STA (04:27)
[2017-08-25] MEDS ORDERED: MORPHINE 2 MG/ML SYRINGE IVP PRN (04:31)
[2017-08-25] MEDS ORDERED: DUONEB NEB PRN (04:31)
[2017-08-25] MEDS ORDERED: ZOFRAN 4 MG/2 ML IVP PRN (04:31)
[2017-08-25] MEDS ORDERED: NITROSTAT SL PRN (04:38)
[2017-08-25] MEDS ORDERED: AZACTAM ONE ×3 (04:40→20:32)
[2017-08-25] MEDS ORDERED: TESSALON PERLES PO PRN (04:47)
[2017-08-25] MEDS: SOLU-MEDROL 125 MG IVP SCH ×3 (05:07→20:39)
[2017-08-25] MEDS: DUONEB NEB SCH ×4 (05:13→21:00)
[2017-08-25] MEDS: SODIUM CHLORIDE 1,000 ML IV SCH ×3 (05:17→22:19)
[2017-08-25 05:22] VITALS: BMI 44.9
[2017-08-25] MEDS: ZANTAC PO SCH ×2 (05:33→16:13)
[2017-08-25] MEDS: MOBIC PO SCH (08:31)
[2017-08-25] MEDS: LOVENOX SUBCUT SCH (08:32)
[2017-08-25] MEDS: ZITHROMAX PO SCH (08:32)
[2017-08-25] MEDS: NEURONTIN PO SCH ×3 (08:32→20:37)
[2017-08-25] MEDS ORDERED: NON-FORMULARY MEDICATION (Meloxicam [Mobic] 15 MG) PO SCH (09:00)
[2017-08-25] MEDS ORDERED: PERCOCET 10-325 PO PRN (12:37)
[2017-08-25] MEDS ORDERED: PERCOCET 10-325 ONE (12:54)
[2017-08-25] MEDS: PERCOCET 10-325 PO PRN ×2 (13:01→20:57)
[2017-08-25] MEDS: AZACTAM 1 GM in SODIUM CHLORIDE 50 ML IV SCH ×2 (13:10→20:38)
--- NOTE | 2017-08-25 20:14 | CT ---
EXAM: CT chest without contra HISTORY: Coughing, shortness of breath COMPARISON: 11/06/2015 TECHNIQUE: CT chest performed without intravenous contrast. Coronal and sagittal reformatted images obtained. FINDINGS: Thyroid and thoracic inlet appear normal. Heart normal in size. Coronary calcifications. No pericardial effusion. Aorta normal in caliber. Esophagus unremarkable. Evaluation for lymphad enopathy limited without contrast. No lymphadenopathy identified. Liver diffusely decreased attenuat ion. Mild bilateral perinephric stranding likely senescent change. No acute abnormalities of the venu nicole. Degenerative change in the spine. Central airway patent. Consolidation and ground-glass and n odular infiltrates right lower lobe, most consistent with pneumonia representing pneumonia. Minimal g round-glass in the right upper lobe image 35. No pleural effusion or pneumothorax. Mild subsegmenta l atelectasis and/or scarring in the right middle lobe and lingula. IMPRESSION: 1. Consolidation and ground-glass and nodular infiltrates right lower lobe, most consistent with pne umonia representing pneumonia. CT chest follow-up recommended in 8 weeks to ensure resolution given areas of nodularity. 2. Minimal ground-glass right upper lobe, likely infectious/inflammatory. This can be assessed on f ollow-up. 3. Coronary calcifications. 4. Hepatic steatosis. 5. Mild bilateral perinephric stranding likely senescent change. Findings can be correlated clinical ly for urinary tract infection.
[2017-08-25] MEDS: LIPITOR PO SCH (20:37)
[2017-08-26] MEDS: DUONEB NEB SCH ×4 (04:38→19:49)
[2017-08-26] MEDS ORDERED: AZACTAM ONE (04:47)
[2017-08-26] MEDS: AZACTAM 1 GM in SODIUM CHLORIDE 50 ML IV SCH ×3 (04:53→20:43)
[2017-08-26] MEDS: SOLU-MEDROL 125 MG IVP SCH ×3 (04:53→20:45)
[2017-08-26] MEDS: ZANTAC PO SCH ×2 (05:43→16:12)
[2017-08-26] MEDS: SODIUM CHLORIDE 1,000 ML IV SCH ×2 (05:44→16:08)
--- NOTE | 2017-08-26 07:45 | DI ---
EXAM: Chest two views, frontal and lateral views. HISTORY: Cough. COMPARISON: 11/06/2015. FINDINGS: The heart size is normal. There is no pulmonary vascular congestion. Subtle right basilar opacities noted. Otherwise, the lungs are clear. No pleural effusion or pneumothorax is seen. No acute osseous abnormality is identified. IMPRESSION: Mild right basilar pneumonitis.
[2017-08-26] MEDS: MOBIC PO SCH (08:19)
[2017-08-26] MEDS: ZITHROMAX PO SCH (08:20)
[2017-08-26] MEDS: NEURONTIN PO SCH ×3 (08:20→20:43)
[2017-08-26] MEDS: PERCOCET 10-325 PO PRN ×2 (08:21→16:12)
[2017-08-26] MEDS: LOVENOX SUBCUT SCH (08:21)
--- NOTE | 2017-08-26 12:54 | HP ---
DATE OF SERVICE: 08/25/17 CHIEF COMPLAINT: Coughing, congestion and shortness of breath HISTORY OF PRESENT ILLNESS: This is a 47 year old male with a history of COPD and bronchitis came to the emergency room been coughing for 6-7 days. Coughing spells and passed out twice , vomited, dizzy and throat hurts, headache and body pains. He is getting yellow /green phlegm. The patient was given antibiotic by KELSEY Gonzalez, not better so came to the emergency room and was seen by Dr. Burciaga in the emergency room. WBC was slightly elevated 10.94. ABG showed the pH 7.395, pCo2 42.1, pO2 68. BNP was normal. Dr. Burciaga did give a dose of IV fluids; Solu-Medrol 125, Tessalon Perles and admitted the patient in review of cough related syncopal episodes and COPD exacerbation and bronchitis. As patient was groggy at that time chest x-ray was done which was read by Dr. Burciaga in the emergency room official reading is still pending. At that time the patient being admitted to the hospital for the COPD exacerbation, bronchitis for the treatment with the IV steroids and the breathing treatments. REVIEW OF SYSTEMS: CONSTITUTIONAL: No fever, no chills. Weakness and tiredness. HEENT: Normal. ENDOCRINE: No weight gain; no weight loss. CVS: No chest pain. No PND, no orthopnea. Shortness of breath. No PND, no orthopnea. RESPIRATORY: Cough, Congestion. No hemoptysis. GI: No nausea, no vomiting. No abdominal pain. No melena. : No hematuria. No polyuria. MUSCULOSKELETAL: No joint swelling. PSYCHIATRIC: Not anxious. No depression. No suicidal thoughts. No homicidal thoughts. SKIN: Intact, no open lesions. PAST MEDICAL HISTORY: Dyslipidemia Osteoarthritis Hypertension COPD Asthma Sleep apnea wears CPAP GERD BPH Osteoarthritis Depression Substance use disorder PAST SURGICAL HISTORY: Tonsillectomy Pilonidal sinus surgery Right shoulder surgery Deviated septum surgery PERSONAL HISTORY: The patient does smoke. and lives with the . FAMILY HISTORY: Diabetes MEDICATIONS: Zantac Atorvastatin Neurontin Mobic Nitrostat Azithromycin Prednisone Percocet ALLERGIES: Hydrocodone Levofloxacin Penicillin Tramadol PHYSICAL EXAMINATION: V/S: Blood pressure 189/61m, respiratory rate 32, heart rate 104, temperature 99.4 with saturation is 94% on room air. HEENT: Atraumatic, normocephalic. No scleral icterus. Pallor positive. Mucosa dry. NECK: Supple. No JVD, no bruit. No lymphadenopathy. No thyromegaly. HEART: S1, S2 normal. No murmur. No cyanosis or clubbing. No ascites. LUNGS:Decreased and basilar crackles. Diffused wheezing. Clear to auscultation. No rales or rhonchi. ABDOMEN: Soft, nontender. Bowel sounds are active. No CVA tenderness. No rigidity or guarding. EXTREMITIES: No pedal edema. No cyanosis or clubbing MUSCULOSKELETAL: Normal joints, no swelling. NEUROLOGIC: The patient is awake and alert. SKIN: Intact; no open lesions. LYMPHATIC: No lymph nodes palpable. LABS: Sodium 138, potassium 3.9, chloride 104, bicarb 23, BUN 19, creatinine 0.90, glucose 127. WBC 10.94, hgb 4.5, hct 38.0 and plt count 167. ABG showed the pH 7.395, pCo2 42.1, pO2 68. ASSESSMENT: 1. COPD exacerbation secondary to bronchitis 2. Hypoxemia 3. Hypertension 4. Dyslipidemia 5. Osteoarthritis 6. DJD spine PLAN: 1. Admit the patient to the regular floor 2. CBC and CMP today and daily 3. Cardiac enzymes and Troponin 4. Tessalon Perles 5. Atorvastatin 6. Lovenox for the DVT prophylaxis 7. DUO NEBS 8. Solu-Medrol 125mg Q 8 hours 9. Rocephin 1 gram daily TIME SPENT: MORE THAN 75 minutes MTDD
[2017-08-26] MEDS: LIPITOR PO SCH (20:44)
[2017-08-27] MEDS: SODIUM CHLORIDE 1,000 ML IV SCH (01:54)
[2017-08-27] MEDS: DUONEB NEB SCH ×4 (05:05→20:10)
[2017-08-27] MEDS: SOLU-MEDROL 125 MG IVP SCH ×3 (05:08→20:30)
[2017-08-27] MEDS: AZACTAM 1 GM in SODIUM CHLORIDE 50 ML IV SCH ×3 (05:08→20:20)
[2017-08-27] MEDS: ZANTAC PO SCH ×2 (06:02→16:24)
[2017-08-27] MEDS: NEURONTIN PO SCH ×3 (08:43→20:21)
[2017-08-27] MEDS: MOBIC PO SCH (08:43)
[2017-08-27] MEDS: LOVENOX SUBCUT SCH (08:44)
[2017-08-27] MEDS: PERCOCET 10-325 PO PRN ×2 (08:44→16:19)
--- NOTE | 2017-08-27 10:27 | PN ---
DATE OF SERVICE: 08/26/17 SUBJECTIVE: The patient was admitted with right sided basilar pneumonia, community acquired. Still coughing and congested. Urine drug screen did come for the Methamphetamine positive. REVIEW OF SYSTEMS: CONSTITUTIONAL: No fever, no chills. HEENT: Normal. ENDOCRINE: No weight gain, no weight loss. CVS: No angina symptoms. No CHF symptoms. No palpitations. No atypical chest pain for CAD. No shortness of breath. No PND, no orthopnea. RESPIRATORY: No cough, no hemoptysis. GI: No nausea, no vomiting. No abdominal pain. : No hematuria. No polyuria. MUSCULOSKELETAL: No joint swelling. PSYCHIATRIC: Not anxious. No depression. No suicidal thoughts. No homicidal thoughts. SKIN: Intact. No rash. PHYSICAL EXAMINATION: V/S: Blood pressure 138/72, respiratory rate 24, heart rate 106, temperature 97.6 with saturation 98%. HEENT: Normocephalic, atraumatic. Mucosa dry. NECK: Supple. No JVD, no carotid bruit. No lymphadenopathy. LUNGS: Decreased and basilar crackles right more than the left. Mild wheezing. Clear to auscultation. No rales or rhonchi. HEART: S1, S2 normal. No S3. No murmur, gallop or regurgitation. ABDOMEN: Soft, nontender. Bowel sounds active. No rigidity. No rebound or guarding. No CVA tenderness. EXTREMITIES: No cyanosis, clubbing or pedal edema. MUSCULOSKELETAL: No joint swelling. NEUROLOGIC: Awake, alert, oriented times three. No focal deficit. LYMPHATIC: No lymph nodes palpable. SKIN: Intact. LABS: WBC 13.15, hgb 12.5, hct 38.3, plt count 191, sodium 140, potassium 4.6, chloride 107, bicarb 24, BUN 16, creatinine 0.78. ASSESSMENT: 1. Right lower lobe pneumonia, community acquired 2. COPD exacerbation secondary to the community acquired pneumonia 3. Drug positive for amphetamine and methamphetamine 4. History of dyslipidemia 5. Hypertension 6. Osteoarthritis 7. DJD spine 8. Depression 9. Anxiety PLAN: 1. Continue the Azithromycin 2. Breathing treatments 3. Solu-Medrol 4. Fluids at 60ml per hour TIME SPENT: More than 35 minutes MTDD
[2017-08-27] MEDS: LIPITOR PO SCH (20:20)
[2017-08-28] MEDS: SOLU-MEDROL 125 MG IVP SCH ×3 (04:26→20:56)
[2017-08-28] MEDS: AZACTAM 1 GM in SODIUM CHLORIDE 50 ML IV SCH (04:26)
[2017-08-28] MEDS: DUONEB NEB SCH ×4 (05:00→20:28)
[2017-08-28] MEDS: SODIUM CHLORIDE 1,000 ML IV SCH ×2 (05:55→23:16)
[2017-08-28] MEDS: ZANTAC PO SCH ×2 (06:03→17:24)
--- NOTE | 2017-08-28 08:46 | PN ---
DATE OF SERVICE: 08/27/17 SUBJECTIVE: Still coughing and congestion but not fever or chills. Was able to get some phlegm. REVIEW OF SYSTEMS: CONSTITUTIONAL: No fever, no chills. HEENT: Normal. ENDOCRINE: No weight gain, no weight loss. CVS: No angina symptoms. No CHF symptoms. No palpitations. No atypical chest pain for CAD. No shortness of breath. No PND, no orthopnea. RESPIRATORY: Cough, no hemoptysis. GI: No nausea, no vomiting. No abdominal pain. : No hematuria. No polyuria. MUSCULOSKELETAL: No joint swelling. PSYCHIATRIC: Not anxious. No depression. No suicidal thoughts. No homicidal thoughts. SKIN: Intact. No rash. PHYSICAL EXAMINATION: V/S: Blood pressure 160/92, respiratory rate 20, heart rate 94 and temperature 97.5 with saturation 96 HEENT: Normocephalic, atraumatic. Mucosa dry. Pallor positive. NECK: Supple. No JVD, no carotid bruit. No lymphadenopathy. LUNGS: Decreased and basilar crackles right more than the left. Clear to auscultation. No rales or rhonchi. HEART: S1, S2 normal. No S3. No murmur, gallop or regurgitation. ABDOMEN: Soft, nontender. Bowel sounds active. No rigidity. No rebound or guarding. No CVA tenderness. EXTREMITIES: No cyanosis, clubbing or pedal edema. MUSCULOSKELETAL: No joint swelling. NEUROLOGIC: Awake, alert, oriented times three. No focal deficit. LYMPHATIC: No lymph nodes palpable. SKIN: Intact. LABS: WBC 18.20, hgb 12.0, hct 39.3, plt count 243, sodium 139, potassium 4.3. chloride 106, bicarb 24, BUN 17, creatinine 0.77 and glucose 239 ASSESSMENT: 1. Right basilar pneumonia 2. COPD exacerbation secondary to the pneumonia 3. Hyperglycemia 4. Hypertension 5. Dyslipidemia 6. Osteoarthritis 7. DJD spine 8. Methamphetamine use 9. GERD 10.Sleep apnea. PLAN: 1. Continue Azactam, Lovenox, DUO NEBS 2. Daily I&O's 3. IV fluids TIME SPENT: More than 35 minutes MTDD
[2017-08-28] MEDS: MOBIC PO SCH (10:20)
[2017-08-28] MEDS: PERCOCET 10-325 PO PRN ×2 (10:20→18:51)
[2017-08-28] MEDS: NEURONTIN PO SCH ×3 (10:21→21:22)
[2017-08-28] MEDS: LOVENOX SUBCUT SCH (10:21)
[2017-08-28] MEDS: AZACTAM 1 GM in SODIUM CHLORIDE 100 ML IV SCH ×2 (14:20→21:21)
--- NOTE | 2017-08-28 15:23 | DI ---
Exam: Three views of the chest. Comparison: CT chest performed 08/25/2017. Reason for exam: Right lower lobe pneumonia. FINDINGS: Similar appearing patchy airspace opacities are seen in the right middle lobe. No pneumot horax, pleural effusion, or focal consolidation. The cardiac silhouette is unchanged. The imaged osseous structures appear grossly unremarkable witho ut acute fracture. Impression: Patchy airspace opacities in the right middle lobe consistent with atelectasis/pneumonia. Findings d o not appear significantly changed when compared to the previous exam.
[2017-08-28] MEDS: LIPITOR PO SCH (21:21)
[2017-08-29] MEDS: AZACTAM 1 GM in SODIUM CHLORIDE 100 ML IV SCH (04:23)
[2017-08-29] MEDS: SOLU-MEDROL 125 MG IVP SCH ×3 (04:24→21:56)
[2017-08-29] MEDS: DUONEB NEB SCH ×4 (05:12→20:45)
[2017-08-29] MEDS: ZANTAC PO SCH ×2 (06:04→16:35)
[2017-08-29] MEDS: PERCOCET 10-325 PO PRN ×2 (08:34→16:35)
[2017-08-29] MEDS: MOBIC PO SCH (08:35)
[2017-08-29] MEDS: LOVENOX SUBCUT SCH (08:35)
[2017-08-29] MEDS: NEURONTIN PO SCH ×3 (08:35→21:50)
[2017-08-29] MEDS: ZESTRIL PO SCH (08:49)
--- NOTE | 2017-08-29 10:38 | HOLTER ---
PATIENT INFORMATION AND COMMENTS Attending Physician: DR. ERNIE NOVOA/ HOSPITALIST Indications: SINUS ARRHYTHMIA VS SICK SINUS SYNDROME __ Patient Medications: LIPITOR, DUONEB, LOVENOX, NEURONTIN, NITROSTAT, ZOFRAN __ Pre-procedure Summary: Protocol: Standard Heart Rate Started: 08/27/17 0849 Minimum: 38 BPM Weight: 282 LBS Ended: 08/28/1717 Maximum: 128 BPM Height: 66" Duration: 15 HOURS Average: 69 BPM _ INTERPRETATIONS/OBSERVATIONS: 1. BASIC RHYTHM: SINUS, RATE 38 BPM TO 120 BPM (SINUS ARRHYTHMIAS NOTED) 2. PAC'S NOTED INFREQUENT/ RARE PVC'S 3. NO ST-T WAVE CHANGES FROM BASELINE 4. ACTIVITY LOG NOT AVAILABLE [facility]
[2017-08-29] MEDS: AZACTAM 1 GM in SODIUM CHLORIDE 50 ML IV SCH ×2 (14:45→21:47)
[2017-08-29] MEDS: LIPITOR PO SCH (21:51)
[2017-08-30] MEDS: PERCOCET 10-325 PO PRN ×2 (00:30→08:38)
[2017-08-30] MEDS: DUONEB NEB SCH ×2 (04:28→10:01)
[2017-08-30] MEDS: AZACTAM 1 GM in SODIUM CHLORIDE 50 ML IV SCH (05:40)
[2017-08-30] MEDS: SOLU-MEDROL 125 MG IVP SCH (05:40)
[2017-08-30] MEDS: ZANTAC PO SCH (05:40)
[2017-08-30] MEDS: MOBIC PO SCH (09:39)
[2017-08-30] MEDS: NEURONTIN PO SCH (09:39)
[2017-08-30] MEDS: LOVENOX SUBCUT SCH (09:39)
[2017-08-30] MEDS: ZESTRIL PO SCH (09:39)
[2017-08-30 11:32] VITALS: BP 142/80; TEMP 98.1
--- NOTE | 2017-09-03 13:24 | DS ---
DATE OF SERVICE: 08/30/17 FINAL DIAGNOSIS: 1. COPD exacerbation secondary to the pneumonia right lower lobe 2. Substance use, methamphetamine 3. Coronary calcification 4. Hepatic cirrhosis 5. COPD 6. Sleep apnea on CPAP 7. Osteoarthritis 8. DJD spine 9. Depression 10.Anxiety 11.Nicotine use DISCHARGE INSTRUCTIONS: Discharge the patient home. Followup with Dr. Self within 4-5 days. Continue the rest of the home medications. MEDICATIONS AT DISCHARGE: Atorvastatin Neurontin Mobic Nitrostat Oxycodone Zantac NEW PRESCRIPTIONS: Z-irasema Prednisone 10mg twice a day Zestril 40mg PO twice a day DIET INSTRUCTIONS: Regular ACTIVITY: Get plenty of rest. DISEASE SPECIFIC EDUCATION: COPD Pneumonia vaccination and prevention of the pneumonia been discussed Polysubstance use, substance use and rehab been discussed the patient verbalized understanding the patient is not ready for the rehab at this time. HOSPITAL COURSE: Saul Redmond 47 year old male came to the emergency room with cough and congestion, shortness of breath. He was seen by the ER physician WBC was 10.94. ABG done showed the pH 7.395, pCO2 42.1, pO2 68. Chest x-ray showed right lower lobe pneumonia. The patient was admitted to the hospital for the breathing treatment, shortness of breath and wheezing. Urine drug screen was done which showed the Amphetamine and Methamphetamine positive. The patient is allergic to the penicillin. He was started on the Solu-Medrol 125mg Q 8 hours, Azactam, DUO NEBS, IV fluids and Lovenox for the DVT prophylaxis. With the given treatment gradually was feeling better. When asked about the Polysubstance use the patient did not given any clarity when asked how much did he take or whether he takes regularly or not. He don't want to answer those questions. Meanwhile coughing and congestion was getting better with the breathing treatments and antibiotics use and the steroids. The patient is up and about walking. Repeat chest x-ray was still was showing the improving right sided pneumonia. At that time the patient being discharged home as the patient been up and about walking and going out for smoking. TIME SPENT: MORE THAN 65 MINUTES MTDD
== END 2017-08-30 11:45 | disposition home or self-care (01) | DRG 194 ==
LOC: ED 03:35 → SCU 04:52
PROVIDERS: ADMIT Emergency Medicine; ATTEND Emergency Medicine
DX: J18.1 Lobar pneumonia, unspecified organism (principal); J44.1 Chronic obstructive pulmonary disease with (acute) exacerbation; R06.02 Shortness of breath; R05 Cough; R55 Syncope and collapse; F15.90 Other stimulant use, unspecified, uncomplicated; I25.10 Atherosclerotic heart disease of native coronary artery without angina pectoris; K74.60 Unspecified cirrhosis of liver; I10 Essential (primary) hypertension; G47.30 Sleep apnea, unspecified; R73.9 Hyperglycemia, unspecified; F32.9 Major depressive disorder, single episode, unspecified; F41.9 Anxiety disorder, unspecified; E78.5 Hyperlipidemia, unspecified; K21.9 Gastro-esophageal reflux disease without esophagitis; M19.90 Unspecified osteoarthritis, unspecified site; M47.9 Spondylosis, unspecified; F17.210 Nicotine dependence, cigarettes, uncomplicated; Z79.899 Other long term (current) drug therapy; Z99.89 Dependence on other enabling machines and devices
CPT/HCPCS: 36415; 80048; 80053; 80306; 82803; 83605; 84145; 85025; 87040; 93005; 93010; 93227; 94640; 96365; 99284

== ENCOUNTER 2018-03-30 20:14 | Emergency (ER) | payer OTHER ==
[2018-03-30 20:25] VITALS: BMI 43.4
[2018-03-30] MEDS ORDERED: CATAPRES ONE (22:29)
--- NOTE | 2018-03-30 23:13 | ED.PDOC ---
General ED Provider: Dr. FERNANDO ROSEN-ER Chief Complaint: Psychiatric Complaint Stated Complaint: im depressed Time Seen by Physician: 20:20 Mode of Arrival: Walk-In Information Source: Patient Exam Limitations: No limitations Primary Care Provider: OSCAR BLACKWOOD Nursing and Triage Documentation Reviewed and Agree: Yes Does patient meet sepsis criteria?: No System Inflammatory Response Syndrome: Not Applicable Sepsis Protocol: For patient's 13 years and over: Temp is 96.8 and below OR 101 and greater Pulse >90 BPM Resp >20/minute Acutely Altered Mental Status Are patient's symptoms suggestive of a new infection, such as: -Pneumonia -Skin, Soft Tissue -Endocarditis -UTI -Bone, Joint Infection -Implantable Device -Acute Abdominal Infection -Wound Infection -Meningitis -Blood Stream Catheter Infection -Unknown Psychological Complaint Exam - Psychiatric Complaint/Exam Patient Complains Of: Present: Depression Onset/Duration: 2 weeks Symptoms Are: Still present Timing: Constant Initial Severity: Mild Current Severity: Moderate Character: Present: Depressed, Anxious Aggravating: Reports: Recent stress Associated Signs And Symptoms: Reports: Sleep disturbance Related History: Reports: Suicidal thoughts Completed Suicide Risk Factors: Male, , Unemployed Patient Accompanied By: Family Patient In Custody Of Police: No Social Withdrawal Present: No Social Isolation Present: No Prior Suicide Attempt: No Patient Uncooperative For Exam: No Mood: Present: Depressed Appearance: Present: Clean Thought Process: Present: Logical Insight: Present: Good Memory: Intact Judgement: Normal Danger To Others: No Patient Medically Stable For: Psych evaluation, Referral, Transfer Differential Diagnoses: Bipolar Disorder, Depression, Suicidal Ideation Review of Systems - Review Of Systems Constitutional: Reports: No symptoms Eyes: Reports: No symptoms Ears, Nose, Mouth, Throat: Reports: No symptoms Respiratory: Reports: No symptoms Cardiac: Reports: No symptoms GI: Reports: No symptoms : Reports: No symptoms Musculoskeletal: Reports: No symptoms Skin: Reports: No symptoms Neurological: Reports: Emotional problems Endocrine: Reports: No symptoms Hematologic/Lymphatic: Reports: No symptoms All Other Systems: Reviewed and Negative Past Medical History - Past Medical History Previously Healthy: No Endocrine: Reports: Dyslipidemia Cardiovascular: Reports: Hypertension Respiratory: Reports: COPD Hematological: Reports: None Gastrointestinal: Reports: GERD Genitourinary: Reports: None Neuro/Psych: Reports: Anxiety, Depression Musculoskeletal: Reports: Arthritis, Back Pain, Joint Pain Cancer: Reports: None Other Pertinent Past Medical History: cyst removed from lower back(? PILONINALCYST, septoplasty - Surgical History General Surgical History: Reports: None (left FA surgery for wound-noted bandage on discussion), Appendectomy ((old record)), Tonsillectomy ((old record) ), Adenoidectomy ((old record)), Orthopedic (right shoulder surgery(old record), left shoulder rotator cuff), Other (deviated septum(old record) renal cyst removed(old record); rotator cuff surgery 02/06) - Family History Family History: Reports: None - Social History Smoking Status: Current every day smoker, Heavy tobacco smoker Hx Substance Use: No Alcohol Screening: Occasionally - Immunizations Tetanus Shot up to Date: Yes Physical Exam - Physical Exam Appearance: Well-appearing, No pain distress, Well-nourished Eyes: FIOR, EOMI, Conjunctiva clear ENT: Ears normal, Nose normal, Oropharynx normal Neck: Supple Respiratory: Airway patent, Breath sounds clear, Breath sounds equal, Respirations nonlabored Cardiovascular: RRR, Pulses normal, No rub, No murmur GI/: Soft, Nontender, No masses, Bowel sounds normal, No Organomegaly Musculoskeletal: Normal strength, ROM intact, No edema, No calf tenderness Skin: Warm Neurological: Sensation intact, Motor intact, Reflexes intact, Cranial nerves intact, Alert, Oriented Psychiatric: Affect appropriate, Mood appropriate Interpretation - EKG Interpretation Time of EKG #1: 23:13 Rate: Normal Rhythm: Sinus Ectopy: None [place]: NL ST Segment: Normal Interpretation: nsr Critical Care Note - Critical Care Note Total Time (mins): 0 Course - Course Hematology/Chemistry: 03/30/18 20:45 03/30/18 20:45 Orders, Labs, Meds: Lab Review 03/30/18 03/30/18 03/30/18 20:45 20:45 22:15 WBC 8.70 RBC 5.05 Hgb 13.8 L Hct 42.4 MCV 84.0 MCH 27.3 MCHC 32.5 RDW Coeff of Mane 12.9 Plt Count 221 Immature Gran % (Auto) 0.6 Neut % (Auto) 65.2 Lymph % (Auto) 22.3 [place] % (Auto) 8.4 Eos % (Auto) 2.9 Baso % (Auto) 0.6 Immature Gran # (Auto) 0.1 Neut # (Auto) 5.7 Lymph # (Auto) 1.9 [place] # (Auto) 0.7 Eos # (Auto) 0.3 Baso # (Auto) 0.1 Sodium 138.1 Potassium 3.86 Chloride 100.3 Carbon Dioxide 31.5 H Anion Gap 10.16 BUN 18.3 Creatinine 1.08 Estimated GFR (MDRD) 74.00 BUN/Creatinine Ratio 16.94 Glucose 130.6 H Calcium 9.71 Total Bilirubin 0.35 AST 20.2 ALT 19.9 Alkaline Phosphatase 75.6 Total Protein 7.96 Albumin 4.28 Globulin 3.68 Albumin/Globulin Ratio 1.16 TSH 0.922 Urine Color Urine Clarity Urine pH Ur Specific Valentine Urine Protein Urine Glucose (UA) Urine Ketones Urine Blood Urine Nitrite Urine Bilirubin Urine Urobilinogen Ur Leukocyte Esterase Ur Squamous Epith Cells Amorphous Sediment Salicylate Level mg/dL < 1.00 Urine Opiates Screen Negative Ur Oxycodone Screen Negative Urine Methadone Screen Negative Ur Propoxyphene Screen Negative Acetaminophen < 10.0 L Ur Barbiturates Screen Negative U Tricyclic Antidepress Negative Ur Phencyclidine Scrn Negative Ur Amphetamine Screen Positive U Methamphetamines Scrn Negative U Benzodiazepines Scrn Negative Urine Cocaine Screen Negative U Cannabinoids Screen Negative Plasma/Serum Alcohol < 10.0 03/30/18 22:15 WBC RBC Hgb Hct MCV MCH MCHC RDW Coeff of Mane Plt Count Immature Gran % (Auto) Neut % (Auto) Lymph % (Auto) [place] % (Auto) Eos % (Auto) Baso % (Auto) Immature Gran # (Auto) Neut # (Auto) Lymph # (Auto) [place] # (Auto) Eos # (Auto) Baso # (Auto) Sodium Potassium Chloride Carbon Dioxide Anion Gap BUN Creatinine Estimated GFR (MDRD) BUN/Creatinine Ratio Glucose Calcium Total Bilirubin AST ALT Alkaline Phosphatase Total Protein Albumin Globulin Albumin/Globulin Ratio TSH Urine Color Yellow Urine Clarity Slightly Urine pH 6.5 Ur Specific Valentine 1.020 Urine Protein Negative Urine Glucose (UA) Negative Urine Ketones Negative Urine Blood Negative Urine Nitrite Negative Urine Bilirubin Negative Urine Urobilinogen 0.2 Ur Leukocyte Esterase Negative Ur Squamous Epith Cells Not present Amorphous Sediment 1+ Salicylate Level mg/dL Urine Opiates Screen Ur Oxycodone Screen Urine Methadone Screen Ur Propoxyphene Screen Acetaminophen Ur Barbiturates Screen U Tricyclic Antidepress Ur Phencyclidine Scrn Ur Amphetamine Screen U Methamphetamines Scrn U Benzodiazepines Scrn Urine Cocaine Screen U Cannabinoids Screen Plasma/Serum Alcohol Orders Category Date Time Status EKG-(ED ONLY) Stat CARDIO 03/30/18 20:17 Completed TRANSFER TO OUTSIDE FACILITY .TO OTHER OUTSIDE FACILITY CARE 03/31/18 01:21 Active (SEE ORDER DETAILS) WRITE TRANSFER/SBAR NOTE ONCE CARE 03/31/18 01:22 Active DISCHARGE ASSESSMENT ONCE DISCHARGE 03/31/18 01:22 Active WRITE DISCHARGE NOTE ONCE DISCHARGE 03/31/18 01:22 Active Consult Mental Health [ED MENTAL HEALTH CONSULT] .ONCE EMERGENCY 03/30/18 20: 21 Active ACETAMINOPHEN Stat LAB 03/30/18 20:45 Completed CBC W/ AUTO DIFF Stat LAB 03/30/18 20:45 Completed COMPREHENSIVE METABOLIC PANEL Stat LAB 03/30/18 20:45 Completed ETOH LEVEL [BLOOD ALCOHOL] Stat LAB 03/30/18 20:45 Completed SALICYLATE Stat LAB 03/30/18 20:45 Completed TSH [THYROID STIMULATING HORMONE] Stat LAB 03/30/18 20:45 Completed URINALYSIS C & S IF INDICATED Stat LAB 03/30/18 22:15 Completed URINE DRUG SCREEN (RAPID FOR ED) [DRUG SCREEN, URINE, LAB 03/30/18 22:15 Completed RAPID] Stat Clonidine HCl [Catapres] MEDS 03/30/18 22:29 Discontinued 0.1 mg .ROUTE .STK-MED ONE Vital Signs: Temp Pulse Resp BP Pulse Ox 03/31/18 05:59 97.7 F 85 15 122/78 96 03/31/18 04:09 82 20 128/94 H 95 03/31/18 02:00 82 20 130/94 H 96 03/31/18 00:05 97.3 F L 92 H 20 162/70 H 96 03/30/18 22:00 97.3 F L 86 22 160/72 H 96 03/30/18 20:15 97.5 F L 106 H 20 173/77 H 94 L Departure - Departure Time of Disposition: 01:15 Disposition: TSF TO PSYCH HOSP/UNIT Discharge Problem: Depression Instructions: Depression (ED) Condition: Good Pt referred to PMD for follow-up: Yes IPMP verified?: No Allergies/Adverse Reactions: Allergies hydrocodone Adverse Reaction (Verified 03/30/18 20:22) RASH/DIFFICULTY BREATHING levofloxacin [From Levaquin] Adverse Reaction (Verified 03/30/18 20:22) Severe rash Penicillins Adverse Reaction (Verified 03/30/18 20:22) Anaphylaxis tramadol [From Ultram] Adverse Reaction (Verified 03/30/18 20:22) Hives Home Medications: Ambulatory Orders Oxycodone HCl/Acetaminophen [Percocet 10-325 mg Tablet] 1 each PO TID PRN Lisinopril 10 mg PO DAILY 03/30/18 Transfer Form Completed: Yes Disposition Discussed With: Patient, Family Discharge Problem: Depression Qualifiers: Depression Type: major depressive disorder Major depression recurrence: recurrent Active/Remission status: currently active Major depression episode severity: moderate Qualified Code(s): F33.1 - Major depressive disorder, recurrent, moderate
[2018-03-31 05:59] VITALS: BP 122/78; TEMP 97.7
== END 2018-03-31 07:30 ==
LOC: ED 20:14
DX: F33.1 Major depressive disorder, recurrent, moderate (principal); I10 Essential (primary) hypertension; E78.5 Hyperlipidemia, unspecified; Z79.899 Other long term (current) drug therapy; F17.210 Nicotine dependence, cigarettes, uncomplicated
CPT/HCPCS: 36415; 80053; 80306; 80307; 81001; 84443; 85025; 93005; 93010; 99285